=== PATIENT | male | born 1945 | race Caucasian/White ===

== ENCOUNTER 2019-10-07 11:51 | Inpatient (IN) | payer MEDICARE ==
--- NOTE | 2019-09-23 12:29 | HP ---
AMENDED REPORT NOW INCLUDES DESIGNATED COSIGNER - ESIGNED BEFORE ADJUSTMENTS HISTORY AND PHYSICAL: DATE OF ADMISSION/SURGERY: 10/07/19 DATE OF OFFICE VISIT: 09/22/19 SURGEON: Sophy Lee MD * (DICTATED BY FRANKLIN MARTIN) PROCEDURE: Left total knee arthroplasty. CHIEF COMPLAINT: Left knee pain. HISTORY OF PRESENT ILLNESS: Mr. Rodriguez is a 74-year-old gentleman with end - stage osteoarthritis of the left knee. He has failed conservative treatment and elected to proceed with a left total knee arthroplasty. PAST MEDICAL HISTORY: Hypertension, AFib, and squamous cell carcinoma. PAST SURGICAL HISTORY: Tonsillectomy. CURRENT MEDICATIONS: 1. Crestor 5 mg daily. 2. Lisinopril 5 mg daily. 3. Metoprolol 25 mg daily. 4. Cardizem 120 mg daily. 5. Warfarin sodium 5 mg alternating with 7.5 mg. 6. Finasteride 5 mg a day. 7. Ibuprofen as needed. 8. Timolol maleate eye drops daily. ALLERGIES: ERYTHROMYCIN and PENICILLIN. FAMILY HISTORY: Coronary artery disease and cancer. SOCIAL HISTORY: He is a 74-year-old gentleman. He lives with his . He does not smoke or use drugs. He uses occasional alcohol, drinks approximately 4 to 5 drinks per week. REVIEW OF SYSTEMS: A complete 14-point review of systems was reviewed with the patient. It was all negative or noncontributory. He denies history of DVT, PE , hepatitis, HIV, or anesthesia problems. PHYSICAL EXAMINATION GENERAL: He is well developed, well nourished, in no acute distress. VITAL SIGNS: He stands 71 inches tall, weighs 261 pounds. His blood pressure is 134/91, his heart rate is 84. HEENT: Normocephalic, atraumatic. NECK: Supple. No palpable lymph nodes. PULMONARY: The lungs are clear to auscultation bilaterally. CARDIO: Regular rate and rhythm. Strong S1, S2. ABDOMEN: Soft, nontender, nondistended. MUSCULOSKELETAL: Left lower extremity: The skin is intact. There are no open wounds or abrasions. There is a moderate effusion of the left knee joint. He has some tenderness along the medial and lateral joint line. Range of motion is 15 to 120 degrees of flexion. There is a 15-degree valgus deformity of the knee. He has a 2+ dorsalis pedis pulse and intact sensation. He is able to dorsiflex and plantarflex. NEUROLOGIC: He is alert and oriented x3. ASSESSMENT AND PLAN: Mr. Rodriguez is a 74-year-old gentleman with end-stage osteoarthritis of the left knee. He has failed conservative treatment and elected to proceed with a left total knee arthroplasty. The surgery is scheduled for 10/07/[address] Lee discussed the risks and benefits of the surgery at today's visit and all of his questions were answered. He will follow up with Dr. Lee 2 weeks after the surgery. The patient is on Coumadin and he was instructed for his last dose to be 10/01/19. FRANKLIN MARTIN [id number]/[facility] #: [id number] MTDD
[~2019-10-07 11:51] MED LIST: Buffered Lidocaine 1% SYRIN* 1 ML/SYRINGE INTRADERM ONE; Lactated Ringers 1000 ML Bag* 1,000 ML IV SCH
[2019-10-07] MEDS ORDERED: Clindamycin 900 MG/D5W BAG(*) 900 MG/50 ML BAG IVPB ONE (11:56)
[2019-10-07] MEDS ORDERED: ROPIVACAINE 5 MG/ML 30 ML BTL (0.5%) ONE ×2 (12:44→14:20)
[2019-10-07] MEDS ORDERED: KETAMINE HCL* 50 MG/ML 10 ML VIAL ONE (12:44)
[2019-10-07] MEDS ORDERED: Lidocaine 2% PF * 5 ML VIAL ONE (12:44)
[2019-10-07] MEDS ORDERED: Midazolam* 1 MG/ML 10 ML VIAL (10 MG) ONE (12:44)
[2019-10-07] MEDS ORDERED: Propofol* 10 MG/ML 20 ML BTL ONE (12:44)
[2019-10-07] MEDS ORDERED: Dexamethasone IV* 4 MG/ML 1 ML (4 MG) ONE (12:44)
[2019-10-07] MEDS ORDERED: Ondansetron INJ* 2 MG/ML VIAL ONE (12:44)
[2019-10-07] MEDS ORDERED: fentaNYL* 50 MCG/ML 2 ML VIAL (100 MCG VIAL) ONE (12:44)
[2019-10-07 13:09] LABS: INR 1.2 (0.82-1.09)
[2019-10-07] MEDS ORDERED: Phenylephrine 40 MCG/ML SYRINGE ONE (15:29)
[2019-10-07] MEDS ORDERED: VASOPRESSIN 20 UNITS/ML 1 ML VIAL ONE (15:32)
[2019-10-07] MEDS ORDERED: EPHEDrine (Pressors)* 50 MG/ML VIAL ONE (15:39)
[2019-10-07] MEDS ORDERED: fentaNYL* 50 MCG/ML 5 ML VIAL (250 MCG VIAL) ONE (15:43)
[2019-10-07] MEDS ORDERED: Ondansetron INJ* 2 MG/ML VIAL IV PRN ×2 (16:27→17:28)
[2019-10-07] MEDS ORDERED: Magnesium Hydroxide LIQ* 30 ML UDC PO PRN (16:27)
[2019-10-07] MEDS ORDERED: diPHENhydraMINE PO* 25 MG PO PRN (16:27)
[2019-10-07] MEDS ORDERED: oxyCODONE TAB* 5 MG TAB PO PRN (16:27)
[2019-10-07] MEDS ORDERED: Ondansetron ODT TAB* 4 MG PO PRN (16:27)
[2019-10-07] MEDS ORDERED: Morphine INJ* 2 MG/ML 1 ML SYRINGE (TWO MG - NEW SYRINGE VERSION) IV PRN (16:27)
[2019-10-07] MEDS ORDERED: diPHENhydraMINE IV* 50 MG/ML 1 ml VIAL (BENADRYL) IV PRN (16:27)
[2019-10-07] MEDS ORDERED: Cyclobenzaprine TAB* 10 MG PO PRN (16:27)
[2019-10-07] MEDS ORDERED: Acetaminophen IV 1GM/100ML * 100 ML ONE (16:56)
[2019-10-07] MEDS ORDERED: Warfarin TAB(*) 7.5 MG PO SCH (17:00)
[2019-10-07] MEDS ORDERED: Ketorolac INJ* 30 MG/ML 1 ML VIAL ONE (17:12)
[2019-10-07] MEDS ORDERED: Naloxone* 0.4 MG/ML 1 ML VIAL IV PRN (17:28)
[2019-10-07] MEDS ORDERED: fentaNYL* 50 MCG/ML 2 ML VIAL (100 MCG VIAL) IV PRN (17:28)
[2019-10-07] MEDS ORDERED: HYDROmorphone INJ1* 1 MG/ML SYRINGE IV PRN (17:28)
[2019-10-07] MEDS: Lactated Ringers 1000 ML Bag* 1,000 ML IV SCH (19:49)
--- NOTE | 2019-10-07 19:51 | OP ---
Operative Report - Blank - Operative Report Date of Operation: 10/07/19 Note: ALPA METCALF 1945 Date of Surgery: 10/07/19 Sophy Lee MD [employer] Damage Clerk: Carl REID did help throughout the procedure with preparation of the knee, wound retraction, manipulation of the knee, and wound closure. Anesthesiologist: Sacha ISAAC Anesthesia Type: Spinal Preoperative Diagnosis: Left severe degenerative osteoarthritis of the knee Postoperative Diagnosis: As above Procedure Performed: Left Total Knee Arthroplasty Tourniquet time: 54 minutes Complications: None Specimen: Bone and cartilage from the left knee joint sent to pathology. Hardware Used: Cemented [employer] total knee hardware was used - For the femur a size 7 left legion posterior stabilized femoral component, for the tibia a size 7 left selam II tibial baseplate, for the insert a size 9mm 7-8 posterior stabilized articular polyethylene insert, and for the patella a size 38 3-peg all poly patella. Brief History/Indication: ALPA METCALF was known in clinic and had a history of severe left knee pain and swelling. He failed conservative treatment with anti-inflammatories, pain pills, intra-articular injections and physical therapy. He elected to undergo left total knee arthroplasty due to continued pain and decreased quality of life. Radiographs showed severe end stage osteoarthritis of the knee with bone on bone contact. Informed consent was obtained from the patient. He understood the risks of surgery included but were not limited to: bleeding, infection, damage to nearby structures, intraoperative fracture, nerve palsy, failure of the hardware, early loosening, knee stiffness or loss of motion, anesthesia complications, stroke, heart attack , blood clot and . He wished to proceed. Intra-Operative Findings: Intraoperatively the patient was noted to have severe loss of cartilage in all 3 compartments of the knee. Description of the Procedure: ALPA METCALF was identified in the preanesthesia unit. His left knee was marked as the correct operative side. Informed consent was signed and placed in the chart. The patient was taken to the operating room and placed under anesthesia without complication. A isabel catheter was placed. A tourniquet was placed on the left thigh. The left lower extremity was prepped and draped in the usual sterile fashion. Preoperative time-out was made to correctly identify the patient, side and site. Appropriate intraoperative antibiotics were given within one hour of incision. Tourniquet was inflated. A midline incision was made and carried sharply down to the extensor mechanism. A new 10 blade was used to make a standard medial parapatellar arthrotomy. The patella was subluxed laterally. Electrocautery was used to dissect soft tissue off the superomedial tibia to the midsagittal plane. The knee was flexed up. The anterior horn of the lateral meniscus and the ACL were sharply incised. A drill was used to enter the distal femur. The intramedullary distal femoral cutting guide was pinned on the distal femur. The oscillating saw was used to make the distal femoral cut. The external rotation guide was pinned on the distal femur and the distal femur was sized to a size 7. The size 7 multi-cutting jig was pinned on the distal femur. The oscillating saw was used to make the appropriate 4 chamfer cuts. Next the PCL was completely released. The extramedullary tibial cutting guide was pinned on the proximal tibia and the oscillating saw was used to make the proximal tibial cut perpendicular to the mechanical axis of the tibia. The bone was carefully removed. The knee was brought out into full extension. The spacer block was placed and had excellent fit with the knee in full extension. The medial and lateral ligaments were well balanced. The flexion and extension gaps were well balanced. The knee was flexed up. Lamina control systems eng was placed both medially and laterally. Any remaining meniscus was removed with electrocautery. Curved osteotome was used to remove any posterior osteophytes. The tibial tray and drop addi were placed and confirmed a satisfactory tibial cut. The size 7 left femoral trial was impacted onto the distal femur. This trial had excellent fit and stability. The box for the posterior stabilized implant was prepared using a box cut osteotome and a reamer. Next a tibial tray trial and 9 mm insert trial was placed. The knee was taken through a range of motion and had full extension to 130 degrees of flexion. Patellofemoral tracking was satisfactory. The patella was inverted and sized to a size 38. Three peg holes were drilled through the size 38 drill guide. The trial patella was placed and the knee was taken through a range of motion. There was satisfactory patellofemoral tracking. All trials were removed. The tibia was subluxed anteriorly and sized to a size 7. The proximal tibial was prepared with a size 7 keel punch. All bony cut surfaces were irrigated with sterile saline and dried. Final implants were cemented into place starting with the tibia, followed by the femur, and last the patella. A 9 mm insert trial was placed and the knee was brought into full extension. Tourniquet was turned down and the knee was copiously irrigated with sterile saline. Electrocautery was used to obtain meticulous hemostasis. Once the cement had fully cured, the insert trial was removed. Any excess cement was removed from around the hardware and capsule. Final insert chosen was a 9 mm posterior stabilized Selam II articular insert size 7-8. Stability of the insert was checked and noted to be stable. The extensor mechanism was closed using number 1 vicryls. The rest of the incision was closed in a layered fashion using 0 and 2-0 vicryls. The skin was closed using 3-0 nylon suture. Sterile xeroform, 4x4s and webril were used to cover the incision. Jenaro wrap and cold pack were used to cover the dressings. The patients anesthesia was reversed without difficulty. He was taken to the PACU in stable condition. Intended weight-bearing will be as tolerated.
--- NOTE | 2019-10-07 20:36 | CONS ---
CONSULTATION REPORT: DATE OF CONSULT: 10/07/19 SERVICE REQUESTING CONSULTATION: Orthopedic Surgery. REASON FOR CONSULTATION: Medical comanagement of atrial fibrillation and hypertension. SOURCE OF INFORMATION: History obtained from review of past medical records, discussion with the patient. RELIABILITY: Good. HISTORY OF PRESENT ILLNESS: This is a 74-year-old man with past medical history of hypertension; chronic atrial fibrillation, on Coumadin; status post left total knee replacement today with Dr. Lee status post failed medical management of his chronic osteoarthritis. The patient was seen in the PACU after this procedure. There was no complication with this procedure. Blood loss was minimal. The patient was interactive. He had no complaints and pain in his left knee was well controlled. He had no chest pain or shortness of breath. PAST MEDICAL HISTORY: Includes chronic atrial fibrillation, on Coumadin; cardiomyopathy; heart failure with preserved ejection fraction, EF was 40% to 45 % cardiomyopathy; hyperlipidemia; hypertension; BPH; osteoarthritis. MEDICATIONS: Home medications reviewed with the patient: 1. Torsemide 10 mg as needed for lower extremity swelling, he takes infrequently. 2. Rhopressa 0.02% right eye daily. 3. Crestor 5 mg Friday, Friday, Friday. 4. Lisinopril 5 mg daily. 5. Metoprolol succinate 25 mg daily. 6. Cardizem 120 one cap by mouth daily. 7. Coumadin 5 mg alternating with 7.5 mg. 8. Finasteride 5 mg daily. 9. Ibuprofen 200 mg as needed for knee pain. 10. Timolol 1 drop to the left eye daily. ALLERGIES: ERYTHROMYCIN and PENICILLINS. FAMILY HISTORY: Significant for father with CAD, at 92. Mother with no known heart disease. Brother with hypertension. SOCIAL HISTORY: Remote tobacco, smoked a pipe and cigar in his 20s, 3 to 4 alcoholic drinks per week, no illicits. REVIEW OF SYSTEMS: Pain in left knee, although mild and well controlled at this time. PHYSICAL EXAM: Vitals when seen by this author: Blood pressure 124/94, heart rate is 89, 96% on room air, respiratory rate is 18. Sitting up in bed, interactive, in no apparent distress. Oropharynx clear. He has moist mucous membranes. Sclerae are anicteric. He has non-elevated JVP. He has a regular rate and rhythm. No murmurs, rubs, or gallops. His lungs are clear bilaterally. His abdomen is soft, nontender, nondistended. Extremities are warm and well perfused. His left leg is braced. He is intact neurovascularly distally to his knee. No clubbing, cyanosis, or edema. He is alert and oriented x3. His cranial nerves II through X are intact. Face is symmetric. He has palpable pulses distally. No apparent anxiety, agitation, or depression. DIAGNOSTIC STUDIES/LAB DATA: Labs reviewed. INR is 1.2 on the day of surgery. ASSESSMENT AND PLAN: This is a 74-year-old man with: 1. History of chronic atrial fibrillation, hypertension, heart failure with preserved ejection fraction, presented to the hospital status post left knee replacement with Dr. Lee on 10/07/19 without complication. Status post left knee total replacement care per primary team. 2. Chronic atrial fibrillation. Discussed with orthopedic team, okay to restart anticoagulation tomorrow. We will bridge Lovenox to Coumadin, 1 mg per kg Lovenox b.i.d. and restart Coumadin at home dose. INR daily. Continue Cardizem as well as metoprolol at home dose. 3. Hypertension. Continue Cardizem and metoprolol, holding lisinopril. 4. Heart failure with preserved ejection fraction. The patient does not take torsemide daily; however, he has received fluid intraoperatively as well as currently has fluid running per orthopedic team. I have restarted his torsemide tomorrow. Careful attention to volume status, may need more and/or have this discontinued based on his volume status daily. 5. BPH. Continue finasteride. 6. Pain control per OR primary team. 7. DVT prophylaxis: Full dose Lovenox to Coumadin bridge. [id number]/[facility] #: [id number] [facility]
[2019-10-07] MEDS ORDERED: Metoprolol Tartrate TAB* 25 MG PO ONE (20:39)
[2019-10-07] MEDS: Docusate CAP* 100 MG PO SCH (21:32)
[2019-10-07] MEDS: Acetaminophen TAB* 325 MG PO SCH (21:32)
[2019-10-07] MEDS: Magnesium Hydroxide LIQ* 30 ML UDC PO SCH (21:35)
[2019-10-07] MEDS: NETARSUDIL MESYLATE RIGHT EYE SCH (21:42)
[2019-10-07] MEDS: Clindamycin 600 MG/D5W BAG(*) 600 MG/50 ML BAG IV SCH (23:49)
[2019-10-08 05:12] LABS: Hematocrit 38 % (42-52); Hemoglobin 12.8 g/dL (14.0-18.0); Mean Platelet Volume 9.6 fL (7.4-10.4); Platelet Count 200 10^3/uL (150-450)
[2019-10-08 05:27] LABS: INR 1.21 (0.82-1.09)
[2019-10-08 05:31] LABS: Calcium 8.6 mg/dL (8.6-10.3); EGFR African American 134.1 (>60); EGFR Non-African American 110.9 (>60); Potassium 4.4 mmol/L (3.5-5.0)
[2019-10-08] MEDS: Lactated Ringers 1000 ML Bag* 1,000 ML IV SCH (06:04)
[2019-10-08] MEDS: Acetaminophen TAB* 325 MG PO SCH ×2 (06:05→13:51)
[2019-10-08] MEDS: Clindamycin 600 MG/D5W BAG(*) 600 MG/50 ML BAG IV SCH ×2 (07:56→14:59)
[2019-10-08] MEDS: Docusate CAP* 100 MG PO SCH (08:02)
[2019-10-08] MEDS: oxyCODONE TAB* 5 MG TAB PO PRN ×2 (08:03→13:53)
[2019-10-08] MEDS: Magnesium Hydroxide LIQ* 30 ML UDC PO SCH (08:07)
[2019-10-08] MEDS ORDERED: Metoprolol Succinate XL TAB* 25 MG PO SCH (09:00)
[2019-10-08] MEDS ORDERED: Torsemide TAB 10 MG PO SCH (09:00)
[2019-10-08] MEDS ORDERED: Enoxaparin(*) 150 MG/ML 1 ML SYRINGE SUBCUT SCH (09:00)
[2019-10-08] MEDS ORDERED: Diltiazem CD CAP* 120 MG PO SCH (09:00)
[2019-10-08] MEDS ORDERED: Vitamin THERAPEUTIC TAB PO SCH (09:00)
[2019-10-08] MEDS ORDERED: Finasteride TAB* 5 MG PO SCH (09:00)
[2019-10-08] MEDS ORDERED: Timolol 0.5% OPTH.SOL* BTL BOTH EYES SCH (09:00)
--- NOTE | 2019-10-08 10:39 | PN ---
Subjective Date of Service: 10/08/19 Interval History: Pt feels wel, the post op pain is well controlled Objective Active Medications: Acetaminophen (Tylenol Tab*) 975 mg PO Q8HR PENDING SALE TO [facility] Last Admin: 10/08/19 06:05 Dose: 975 mg Bisacodyl (Dulcolax Supp*) 10 mg ND DAILY PRN PRN Reason: CONSTIPATION Cyclobenzaprine HCl (Flexeril Tab*) 10 mg PO Q6H PRN PRN Reason: SPASMS Diltiazem HCl (Cardizem Cd Cap*) 120 mg PO QAM PENDING SALE TO [facility] Last Admin: 10/08/19 08:02 Dose: 120 mg Diphenhydramine HCl (Benadryl Iv*) 25 mg IV Q6H PRN PRN Reason: PRURITIS Diphenhydramine HCl (Benadryl Po*) 25 mg PO Q6H PRN PRN Reason: PRURITIS Docusate Sodium (Colace Cap*) 100 mg PO BID PENDING SALE TO [facility] Last Admin: 10/08/19 08:02 Dose: 100 mg Enoxaparin Sodium (Lovenox(*)) 118 mg SUBCUT Q12H PENDING SALE TO [facility] Last Admin: 10/08/19 08:07 Dose: 118 mg Finasteride (Proscar Tab*) [facility] Last Admin: 10/08/19 08:06 Dose: 5 mg Clindamycin HCl/Dextrose (Cleocin 600 Mg/50 Ml(*)) 600 mg in 50 mls @ 100 mls/ hr IV Q8H PENDING SALE TO [facility] Stop: 10/08/19 15:59 Last Admin: 10/08/19 07:56 Dose: 100 mls/hr Lactated Ringer's (Lactated Ringers 1000 Ml Bag*) 1,000 mls @ 100 mls/hr IV PER RATE PENDING SALE TO [facility] Last Admin: 10/08/19 06:04 Dose: 100 mls/hr Lactulose (Lactulose*) 30 ml PO BID PRN PRN Reason: CONSTIPATION Magnesium Hydroxide (Milk Of Magnesia Liq*) 30 ml PO BID PENDING SALE TO [facility] Last Admin: 10/08/19 08:07 Dose: 30 ml Magnesium Hydroxide (Milk Of Magnesia Liq*) 30 ml PO Q6H PRN PRN Reason: CONSTIPATION Metoprolol Succinate (Toprol Xl Tab*) 25 mg PO QAM PENDING SALE TO [facility] Last Admin: 10/08/19 08:07 Dose: 25 mg Morphine Sulfate (Morphine Inj (Syringe))*) 2 mg IV Q4H PRN PRN Reason: Pain - Unrelieved Multivitamins (Theragran Tab*) 1 tab PO DAILY PENDING SALE TO [facility] Last Admin: 10/08/19 08:02 Dose: 1 tab Non-Formulary Medication (Netarsudil Mesylate [Rhopressa]) 1 drop RIGHT EYE QPM PENDING SALE TO [facility] Last Admin: 10/07/19 21:42 Dose: Not Given Ondansetron HCl (Zofran Inj*) 4 mg IV Q6H PRN PRN Reason: NAUSEA Ondansetron HCl (Zofran Odt Tab*) 4 mg PO Q6H PRN PRN Reason: NAUSEA Oxycodone HCl (Roxycodone Tab*) 5 mg PO Q4H PRN PRN Reason: Pain - Breakthrough Last Admin: 10/08/19 08:03 Dose: 5 mg Oxycodone HCl (Roxycodone Tab*) 10 mg PO Q4H PRN PRN Reason: Pain - Breakthrough Pharmacy Profile Note (Coumadin Daily Reminder*) 0 note FOLLOW UP 1700 PENDING SALE TO [facility] Timolol Maleate (Timoptic 0.5% Opth*) 1 drop BOTH EYES QAM PENDING SALE TO [facility] Last Admin: 10/08/19 08:09 Dose: 1 drop Torsemide (Torsemide) 10 mg PO DAILY PENDING SALE TO [facility] Last Admin: 10/08/19 08:03 Dose: 10 mg Warfarin Sodium (Coumadin Tab(*)) 5 mg PO Q48H PENDING SALE TO [facility]; Protocol Warfarin Sodium (Coumadin Tab(*)) 7.5 mg PO Q48H PENDING SALE TO [facility]; Protocol Last Admin: 10/07/19 21:55 Dose: 7.5 mg Vital Signs - 8 hr 10/08/19 10/08/19 10/08/19 03:04 07:53 08:00 Temperature 97.3 F 97.8 F Pulse Rate 100 116 Respiratory 16 16 18 Rate Blood Pressure 120/94 131/100 (mmHg) O2 Sat by Pulse 95 95 95 Oximetry 10/08/19 10/08/19 08:01 08:03 Temperature Pulse Rate 89 Respiratory 18 Rate Blood Pressure 130/89 (mmHg) O2 Sat by Pulse Oximetry Oxygen Devices in Use Now: None Appearance: 74 yo M in nAD, aAOx3 Eyes: No Scleral Icterus, PERRLA Ears/Nose/Mouth/Throat: NL Teeth, Lips, Gums, Mucous Membranes Moist Neck: NL Appearance and Movements; NL JVP, Trachea Midline Respiratory: Symmetrical Chest Expansion and Respiratory Effort Cardiovascular: - - irregular Abdominal: NL Sounds; No Tenderness; No Distention, No Hepatosplenomegaly Lymphatic: No Cervical Adenopathy Extremities: No Clubbing, Cyanosis, - - trace ankle edema b/l, left knee in cryo unit-dressing not removed Skin: No Nodules or Sclerosis Neurological: Alert and Oriented x 3, NL Muscle Strength and Tone Result Diagrams: 10/08/19 04:22 10/08/19 04:22 Assess/Plan/Problems-Billing Assessment: 74 yo M with h/o a. fib, diastolic cHF (EF 40-45%), s/p elective left knee replacement - Patient Problems (1) Knee joint replacement status Comment: s/p L TKR on 10/07/18-as per Dr. Lee (2) Atrial fibrillation Comment: HR in low 100's-likely related to post op state no need for further telem, will d/c Cont Cardizem CD (3) DVT prophylaxis Comment: Lovenox bridging to Coumadin will ask RN to do Lovenox teaching Status and Disposition: medicine consult, will follow
--- NOTE | 2019-10-08 13:31 | PN ---
Progress Note - Progress Note Date of Service: 10/08/19 SOAP: Subjective: [The pt was seen this am sitting in chair. He is doing well. PT went well. The pts pain is well controlled. The pt would like to go home. He denies any chest pain, sob, nausea or vomiting. ] Objective: [General: A&Ox3, NAD MSK, LLE: dressing is c/d/i. Dressing is changed and incision is c/d/i. no drainage or purulence. +df/pf. calf is soft and non tender. 2+ DP pulse. ] Vital Signs Temp 98.9 F 10/08/19 11:30 Pulse 55 10/08/19 11:30 Resp 18 10/08/19 11:30 BP 118/78 10/08/19 11:30 Pulse Ox 95 10/08/19 11:30 Intake & Output 10/07/19 10/08/19 10/08/19 18:59 06:59 18:59 Intake Total 2200 2235 240 Output Total 1550 150 Balance 2200 685 90 Weight 261 lb 3.964 oz Intake: IV Fluids 2200 980 LR 2200 980 IVPB 55 ABX - CLINDAMYCIN 55 Oral 1200 240 Output: Urine 150 Smith 1550 Assessment: [POD 1 LTKA ] Plan: [PT Pain medication as needed anticoagulation - 120 mg/0.8mL of lovenox bid until theraputic He will resume his warfarin 5mg tonight and 7.5mg tomorrow alternating as such. DC today. ]
--- NOTE | 2019-10-08 13:51 | DS ---
Orthopedic Discharge Summary - Discharge Summary Date of Admission:10/07/19 Date of Discharge: 10/08/2019 Date of Surgery: 10/07/2019 Attending Orthopedic Provider: Dr. Lee Pre-operative Diagnosis: Left knee osteoarthritis Operative Procedure: Left total knee arthroplasty Disposition of Patient: Home Condition of Patient: Good History: ALPA METCALF is a 74 year old M with years of increasingly severe left knee pain. Patient has failed conservative management and has elected to undergo a left total knee replacement Hospital Course: ALPA was admitted to [facility] on 10/07/19. Patient underwent a left total knee arthroplasty without complication followed by a brief recovery in PACU and transfer to the Short Stay Surgical Unit in stable condition. Our hospitalist service, physical therapy and occupational therapy also participated in this patients care. Post-op day 1: patient was alert and in no acute distress. Dressing was clean, dry and intact. Operative extremity dorsiflexion and plantarflexion intact, sensation intact to light touch distally, DP2+. Dressing was changed, incision was clean, dry and intact. Patient was deemed to be medically and orthopedically stable for discharge. Physical therapy goals were met. Home Medications Medication Instructions Recorded Confirmed Type Diltiazem CD CAP* [Cardizem CD 120 mg PO QAM 03/17/17 10/07/19 History CAP*] Finasteride TAB* [Proscar TAB*] 5 mg PO QAM 03/17/17 10/07/19 History Ibuprofen TAB* [Advil TAB*] 200 mg PO Q6H PRN 03/17/17 10/07/19 History Lisinopril TAB* [Prinivil TAB*] 5 mg PO QAM 03/17/17 10/07/19 History Metoprolol Succinate XL TAB* 25 mg PO QAM 03/17/17 10/07/19 History [Toprol XL TAB*] Timolol 0.5% OPTH.JOSIE* [Timoptic 1 drop BOTH EYES QAM 03/17/17 10/07/19 History 0.5% Opth*] Warfarin TAB(*) [Coumadin TAB(*)] 5 mg PO EVERY OTHER DAY 03/17/17 10/07/19 History Warfarin TAB(*) [Coumadin TAB(*)] 7.5 mg PO EVERY OTHER DAY 03/17/17 10/07/19 History Netarsudil Mesylate [Rhopressa] 1 drop RIGHT EYE QPM 09/22/19 10/07/19 History Discharge Instructions following Orthopedic Surgery: Activity: * Weight Bearing as tolerated * Continue physical therapy and occupational therapy exercises as shown Wound care: * OK to shower on post-op day 3, no bathing, swimming, or submerging wound. * Use gentle soap, pat dry. Cover with gauze, TAVARES wrap or tape. * Visiting home nurse to do wound checks. Call Orthopedic office for: * Increased drainage * Redness * Increased pain * Fever Go to ER with shortness of breath or chest pain. Diet: * Regular diet * Increase fluids and fiber to prevent constipation. * Continue to use stool softeners, call office if no bowel motion within 48 hours. Medications See Home Medication List in your packet for medications that you should take after discharge. DVT Prophylaxis: Coumadin Dosing: * Resume home dosing of 5mg tonight 10/08/2019 and 7.5 mg tomorrow 10/09/2019 and alternating as such * Visiting home nurse to draw blood work for INR on Friday and . * You will be provided with dose instructions on Mondays and . Lovenox Dosin mg twice a day to be taken until you are therapeutic Pain Control: Percocet Dosin/325 mg 1-2 tabs by mouth every 4-6 hours as needed for pain. Maximum of 10 tabs per day. Please note that Percocet contains Tylenol (acetaminophen). Maximum daily dose of Tylenol is 4000 mg from all sources. Antibiotics are required prior to any dental work. FOLLOW UP: Follow up with [Jesus ] Within 10-14 days, call for appointment Please call our office with any questions or concerns ([phone])
[2019-10-08 15:41] VITALS: BP 111/77
[2019-10-08] MEDS: NETARSUDIL MESYLATE RIGHT EYE SCH (16:44)
[2019-10-08] MEDS ORDERED: Warfarin TAB(*) 5 MG PO SCH (17:00)
[2019-10-09] MEDS ORDERED: Bisacodyl SUPP* 10 MG SUPP PR PRN (16:27)
== END 2019-10-08 18:55 | disposition home health service (06) | DRG 470 ==
LOC: AA 11:51 → SSU 16:27
PROVIDERS: ADMIT Orthopaedic Surgery Adult Reconstructive Orthopaedic Surgery; ATTEND Orthopaedic Surgery Adult Reconstructive Orthopaedic Surgery
PROC: 0SRD0J9 Replacement of Left Knee Joint with Synthetic Substitute, Cemented, Open Approach (ICD-10-PCS; principal; 2019-10-07 15:45)
DX: M17.12 Unilateral primary osteoarthritis, left knee (principal); I48.20 Chronic atrial fibrillation, unspecified; I42.8 Other cardiomyopathies; I50.32 Chronic diastolic (congestive) heart failure; I11.0 Hypertensive heart disease with heart failure; E78.00 Pure hypercholesterolemia, unspecified; H40.9 Unspecified glaucoma; I27.20 Pulmonary hypertension, unspecified; M25.762 Osteophyte, left knee; I08.1 Rheumatic disorders of both mitral and tricuspid valves; N40.0 Benign prostatic hyperplasia without lower urinary tract symptoms; F41.0 Panic disorder [episodic paroxysmal anxiety]; E78.5 Hyperlipidemia, unspecified; Z85.828 Personal history of other malignant neoplasm of skin; Z88.1 Allergy status to other antibiotic agents; Z88.0 Allergy status to penicillin; Z79.01 Long term (current) use of anticoagulants; Z79.899 Other long term (current) drug therapy; Z82.3 Family history of stroke; Z87.891 Personal history of nicotine dependence
CPT/HCPCS: 36415; 80048; 85014; 85018; 85049; 85610; 86850; 86900; 86901; 88305; 88311; A9270-GY; C1776; J1100; J1650; J1885; J2250; J2405; J2704; J2795; J3010

== ENCOUNTER 2024-06-15 10:04 | Observation (INO) ==
[~2024-06-15 10:04] MED LIST changes: -Buffered Lidocaine 1% SYRIN* 1 ML/SYRINGE INTRADERM ONE; -Lactated Ringers 1000 ML Bag* 1,000 ML IV SCH; +Metoclopramide 5 MG/ML VIAL (10 mg) IV PRN; +NS 0.45% 1000 ml BAG 1,000 ML IV SCH; +Naloxone 0.4 mg VIAL 0.4 mg/ml 1 ml VIAL IV PRN; +Ondansetron 4 mg VIAL 2 MG/ML 2 ml VIAL IV PRN; +fentaNYL 100 mcg/2 ml 50 MCG/ML VIAL IV PRN
[2024-06-15] MEDS ORDERED: Tranexamic Acid 1 GM/100ML BAG 2,000 MG/200 ML BAG IV ONE (10:25)
[2024-06-15] MEDS ORDERED: ceFAZolin 2 GM PREMIX 2 GM/50 ML BAG ONE (10:25)
[2024-06-15] MEDS ORDERED: Lidocaine 2% PF 5 ML VIAL ONE (10:47)
[2024-06-15 10:57] LABS: Rapid COVID-19 Molecular Undetected (Undetected)
[2024-06-15] MEDS ORDERED: ROPIVACAINE 5 MG/ML 30 ML BTL (0.5%) ONE ×2 (11:10→13:05)
[2024-06-15] MEDS ORDERED: Midazolam 2 mg/2 ml VIAL 1 mg/ml 2 ml VIAL (2 mg) ONE (11:10)
[2024-06-15] MEDS ORDERED: Propofol 10 MG/ML 20 ML BTL ONE ×2 (11:11→12:58)
[2024-06-15] MEDS ORDERED: fentaNYL 250 mcg/5 ml 50 MCG/ML 5 ml VIAL (250 MCG) ONE (11:13)
[2024-06-15] MEDS ORDERED: Glycopyrrolate IV 0.2 MG/ML 1 ML VIAL ONE (12:29)
[2024-06-15] MEDS ORDERED: ceFAZolin VIAL VIAL ONE (12:51)
[2024-06-15] MEDS ORDERED: Dexamethasone IV 4 MG/ML VIAL 1 ml VIAL ONE (12:51)
[2024-06-15] MEDS ORDERED: Ondansetron 4 mg VIAL 2 MG/ML 2 ml VIAL ONE (12:51)
[2024-06-15] MEDS ORDERED: Magnesium Hydroxide LIQ 30 ML UDC PO PRN (12:56)
[2024-06-15] MEDS ORDERED: Morphine 2 MG/ML SYRINGE IV PRN (12:56)
[2024-06-15] MEDS ORDERED: Ondansetron ODT 4 mg TAB 4 MG TAB PO PRN (12:56)
[2024-06-15] MEDS ORDERED: Lactulose 30 ml UDC PO PRN (12:56)
[2024-06-15] MEDS ORDERED: Ondansetron 4 mg VIAL 2 MG/ML 2 ml VIAL IV PRN (12:56)
[2024-06-15] MEDS ORDERED: Calcium Carb (TUMS) 500 mg CHEW TAB PO PRN (12:56)
[2024-06-15] MEDS ORDERED: HYDROmorphone 0.5 MG/0.5 ML SYRINGE ONE (13:10)
[2024-06-15] MEDS: Acetaminophen IV 1 GM/100ML 1,000 MG/100 ML BAG IV ONE (14:25)
[2024-06-15] MEDS: Buffered Lidocaine 1% SYRIN 1 ml INTRADERM ONE (14:25)
[2024-06-15] MEDS: Scopolamine 1 mg/72hr PATCH TRANSDERM ONE (14:26)
[2024-06-15] MEDS: Lactated Ringers 1000 ml BAG 1,000 ML IV SCH ×2 (14:26→16:54)
[2024-06-15] MEDS: ceFAZolin *3* GM in NS PREMIX 3 GM/100 ML BAG IV SCH ×2 (16:55→20:31)
[2024-06-15] MEDS: Magnesium Hydroxide LIQ 30 ML UDC PO SCH (20:31)
[2024-06-16 05:59] LABS: Hemoglobin 12.7 g/dL (13.2-16.3); Mean Platelet Volume 8.9 fL (7.5-11.2); Platelet Count 213 10^3/uL (150-450)
[2024-06-16 06:16] LABS: Calcium 8.9 mg/dL (8.6-10.3); Creatinine, Serum 0.7 mg/dL (0.67-1.17); Potassium 4.7 mmol/L (3.5-5.0); eGFR CKD-EPI 94.9 (>60)
[2024-06-16] MEDS: Timolol 0.5% OPTH.SOL BTL RIGHT EYE SCH (08:31)
[2024-06-16] MEDS: Vitamin THERAPEUTIC TAB PO SCH (08:33)
[2024-06-16 10:48] VITALS: BP 122/83
== END 2024-06-16 13:15 | disposition home or self-care (01) ==
LOC: OR 10:04 → SSU 10:04
PROVIDERS: ADMIT Orthopaedic Surgery Adult Reconstructive Orthopaedic Surgery; ATTEND Orthopaedic Surgery Adult Reconstructive Orthopaedic Surgery